=== PATIENT | female | born 1975 | race Caucasian/White ===

== ENCOUNTER 2017-09-08 19:56 | Emergency (ER) | payer SELFPAY ==
[2017-09-08] MEDS ORDERED: Cephalexin 500 MG CAP ONE (21:31)
[2017-09-08] MEDS ORDERED: Naproxen 500 MG TAB ONE (21:31)
[2017-09-08] MEDS ORDERED: Sulfameth/Trimethoprim DS 800-160mg TAB ONE (21:31)
== END 2017-09-08 21:40 | disposition home or self-care (01) ==
LOC: MADERS 19:56
DX: L01.00 Impetigo, unspecified (principal); B95.8 Unspecified staphylococcus as the cause of diseases classified elsewhere; F17.210 Nicotine dependence, cigarettes, uncomplicated
CPT/HCPCS: 99282

== ENCOUNTER 2017-11-22 22:26 | Emergency (ER) | payer SELFPAY ==
[2017-11-22] MEDS ORDERED: Cephalexin 500 MG CAP ONE (23:40)
== END 2017-11-22 23:46 | disposition home or self-care (01) ==
LOC: MADERS 22:26
DX: L03.116 Cellulitis of left lower limb (principal); F17.290 Nicotine dependence, other tobacco product, uncomplicated
CPT/HCPCS: 99282